=== PATIENT | female | born 1975 | race Caucasian/White ===

== ENCOUNTER 2017-09-25 03:10 | Emergency (ER) | payer MEDICARE, MEDICAID ==
[~2017-09-25] VITALS: Ht 162.6 cm; Wt 70.8 kg
[~2017-09-25 03:10] MED LIST: ALBUTEROL SULF8.5 GM INH; ALPRAZOLAM1 MG ORAL; BENADRYL25 M3 PO; IBUPROFEN600 MG PO; KLONOPIN1 MG ORAL; LEVOTHYROXINE88 MCG ORAL; PERMETHRIN60 GM TOPIC; PREDNISONE20 MG ORAL; SYNTHROID88 MCG ORAL; TRAZODONE HCL150 MG ORAL; WELLBUTRIN100 MG ORAL
[2017-09-25] MEDS ORDERED: KLONOPIN1 MG ORAL (03:42)
--- NOTE | 2017-09-25 03:50 | Emergency Room Report ---
History of Present Illness General Chief Complaint: General Complaint Source: Patient Present Illness HPI 42-year-old female, history of anxiety, presenting with anxiety. Patient states that she was living with her boyfriend, got "" kicked out of the house, and she states that she has not had access to her anxiety medication because it is at her boyfriend's house. No SI or HI. States that she has a doctor. Allergies: Coded Allergies: MORPHINE (Verified Allergy, Intermediate, 04/30/13) CHEST PAIN Patient History Past Medical History: see triage record Past Surgical History: none Pertinent Family History: none Last Menstrual Period: 2 weeks ago Now: No Reviewed Nursing Documentation: PMH: Agreed; PSxH: Agreed Nursing Documentation-PMH Hx COPD: Yes Review of Systems All Other Systems: negative except mentioned in HPI Physical Exam Vital Signs Date Time Temp Pulse Resp B/P (MAP) Pulse Ox O2 Delivery O2 Flow Rate FiO2 09/25/18 03:20 98.2 97 18 133/92 98 Room Air 98.2 Sp02 EP Interpretation: reviewed, normal General Appearance: alert, GCS 15, non-toxic, mild distress Head: normocephalic, atraumatic Eyes: bilateral eye normal inspection, bilateral eye PERRL, bilateral eye EOMI ENT: normal ENT inspection Neck: normal inspection Respiratory: normal inspection Cardiovascular #1: normal inspection, regular rate, rhythm Cardiovascular #2: 2+ radial (R), 2+ radial (L) Gastrointestinal: normal inspection Musculoskeletal: normal inspection, back normal, normal range of motion, non- tender Neurologic: normal inspection, alert, oriented x3, responsive, motor strength/ tone normal, sensory intact, normal gait, speech normal Psychiatric: no suicidal/homicidal ideation, anxious Skin: normal inspection, normal color, no rash, warm/dry, well hydrated, normal turgor Medical Decision Making Diagnostic Impression: Primary Impression: Encounter for medication refill Additional Impression: Anxiety disorder ER Course 42-year-old female with anxiety need medication refill for her Clonopin DDX: Medication refill Plan: None ER course: Patient has remained stable during ED stay. Disposition: Patient is to be discharged to home. Prescriptions given are Clonopin Patient is instructed to follow up with their primary care doctor for further refills Please note that this Emergency Department Report was dictated using [employer] technology software, occasionally this can lead to erroneous entry secondary to interpretation by the dictation equipment Last Vital Signs Date Time Temp Pulse Resp B/P (MAP) Pulse Ox O2 Delivery O2 Flow Rate FiO2 09/25/17 03:20 98.2 97 18 133/92 98 Room Air 98.2 Disposition: HOME, SELF-CARE Condition: Stable Scripts Clonazepam* (KLONOPIN*) 1 Mg Tablet 2 MG ORAL Q6H, #18 TAB 0 Refills Prov: Kristi Moralez M.D. 09/25/17 Referrals: NOT CHOSEN IPA/,REFERRING (PCP) Patient Instructions: Medicine Refill at the Emergency Department Kristi Moralez M.D. September 25, 2017 03:50
[2017-09-25 04:05] VITALS: BP_SYST 127; BP_SYST 133; BP_DIAS 87; BP_DIAS 92
== END 2017-09-25 04:10 | disposition home or self-care (01) ==
LOC: EMR 03:34
DX: F41.9 Anxiety disorder, unspecified (principal); Z88.6 Allergy status to analgesic agent; J44.9 Chronic obstructive pulmonary disease, unspecified
CPT/HCPCS: 99283

== ENCOUNTER 2017-12-25 03:33 | Emergency (ER) | payer MEDICARE, OTHER ==
[~2017-12-25] VITALS: Ht 162.6 cm; Wt 65.8 kg
[2017-12-25] MEDS ORDERED: Albuterol ud Inhalation HHN ONE (04:00)
[2017-12-25] MEDS ORDERED: Ipratropium 0.02% Inh Soln 2.5ml UD HHN ONE (04:00)
[2017-12-25] MEDS ORDERED: PROMETHAZINE-D118 ML ORAL (04:28)
[2017-12-25] MEDS ORDERED: ALBUTEROL SULF8.5 GM INH (04:28)
[2017-12-25] MEDS ORDERED: PREDNISONE20 MG ORAL (04:28)
[2017-12-25 04:41] VITALS: BP 108/72
[2017-12-25 04:43] VITALS: BP 108/72
--- NOTE | 2017-12-27 14:12 | Emergency Room Report ---
History of Present Illness General Chief Complaint: Asthma Source: Patient Present Illness HPI 42-year-old female presents ED for evaluation. Patient complaining of shortness of breath, sore throat, cough 1 week. Cough is nonproductive. Pain is dull, 7 out of 10, nonradiating. History of asthma. Denies fevers chills. Denies chest pain. Denies sick contacts or recent travel. No other aggravating relieving factors. Denies any other associated symptoms Allergies: Coded Allergies: MORPHINE (Verified Allergy, Intermediate, 04/30/13) CHEST PAIN Patient History Past Medical History: asthma, COPD, GERD Past Surgical History: none Pertinent Family History: none Social History: Denies: smoking, alcohol use, drug use Now: No Immunizations: UTD Reviewed Nursing Documentation: PMH: Agreed; PSxH: Agreed Nursing Documentation-PMH Past Medical History: No History, Except For Hx Asthma: Yes Hx COPD: Yes Hx Gastrointestinal Problems: Yes - GERD Review of Systems All Other Systems: negative except mentioned in HPI Physical Exam Vital Signs Date Time Temp Pulse Resp B/P (MAP) Pulse Ox O2 Delivery O2 Flow Rate FiO2 12/25/17 03:46 96 18 104/72 96 Room Air 12/25/17 04:03 21 12/25/17 04:41 98.0 98.0 Sp02 EP Interpretation: reviewed, normal General Appearance: no apparent distress, alert, GCS 15, non-toxic Head: normocephalic, atraumatic Eyes: bilateral eye normal inspection, bilateral eye PERRL ENT: hearing grossly normal, normal pharynx, no angioedema, normal voice Neck: full range of motion, supple/symm/no masses Respiratory: chest non-tender, normal breath sounds, speaking full sentences, wheezing Cardiovascular #1: regular rate, rhythm, no edema Cardiovascular #2: 2+ carotid (R), 2+ carotid (L), 2+ radial (R), 2+ radial (L) , 2+ dorsalis pedis (R), 2+ dorsalis pedis (L) Gastrointestinal: normal bowel sounds, non tender, soft, non-distended, no guarding, no rebound Rectal: deferred Genitourinary: normal inspection, no CVA tenderness Musculoskeletal: back normal, gait/station normal, normal range of motion, non- tender Neurologic: alert, oriented x3, responsive, motor strength/tone normal, sensory intact, speech normal Psychiatric: judgement/insight normal, memory normal, mood/affect normal, no suicidal/homicidal ideation Reflexes: 3+ bicep (R), 3+ bicep (L), 3+ tricep (R), 3+ tricep (L), 3+ knee (R) , 3+ knee (L) Skin: normal color, no rash, warm/dry, well hydrated Lymphatic: no adenopathy Medical Decision Making Diagnostic Impression: Primary Impression: Bronchitis ER Course Hospital Course 42-year-old female presents to ED complaining of cough, SOB Differential diagnoses include: URI, bronchitis, asthma/COPD, pneumonia Clinical course Patient placed on stretcher. After initial history and physical I ordered prednisone and nebulizer treatment. Upon reassessment patient states cough and symptoms have improved. Findings consistent with bronchitis. Diagnosis - bronchitis Stable and discharged home with prescriptions for Rx prednisone, albuterol, promethazine. Instructed to followup with PMD. Return to ED if symptoms recur or worsen Last Vital Signs Date Time Temp Pulse Resp B/P (MAP) Pulse Ox O2 Delivery O2 Flow Rate FiO2 12/25/17 04:43 98.0 84 20 108/72 98 Room Air 12/25/17 04:17 21 Status: improved Disposition: HOME, SELF-CARE Condition: Stable Scripts D-Methorphan Hb/Prometh Hcl* (PROMETHAZINE-DM SYRUP*) 118 Ml Syrup 5 ML ORAL Q6H PRN for For Cough, #118 ML 0 Refills Prov: Shawn Torres MD 12/25/17 Prednisone* (PREDNISONE*) 20 Mg Tablet 40 MG ORAL DAILY, #10 TAB Prov: Shawn Torres MD 12/25/17 Albuterol Sulfate* (ALBUTEROL SULFATE MDI*) 8.5 Gm Hfa.aer.ad 2 PUFF INH Q6H, #1 EA 0 Refills Prov: Shawn Torres MD 12/25/17 Patient Instructions: Acute Bronchitis, [id number] Shawn Torres MD Dec 27, 2017 14:12
== END 2017-12-25 04:45 | disposition home or self-care (01) ==
LOC: EMR 04:00
DX: J44.9 Chronic obstructive pulmonary disease, unspecified (principal); K21.9 Gastro-esophageal reflux disease without esophagitis; Z88.5 Allergy status to narcotic agent
CPT/HCPCS: 94640; 99284; J7512

== ENCOUNTER 2018-01-23 14:01 | Emergency (ER) | payer MEDICARE, MEDICAID ==
[~2018-01-23] VITALS: Ht 162.6 cm; Wt 63.5 kg
[~2018-01-23 14:01] MED LIST changes: +PROMETHAZINE-D118 ML ORAL
--- NOTE | 2018-01-23 14:27 | Emergency Room Report ---
History of Present Illness General Chief Complaint: Flu Like Symptoms Source: Patient, Medical Record Present Illness HPI 32-year-old female presents to the emergency department complaining of sore throat, rhinorrhea, cough, wheezing and subjective fevers 3 days. Patient reports history of bronchitis. Patient states that she took this morning for fever. Patient also reports generalized body aches. She denies photophobia, neck pain/stiffness or sudden onset headache. Allergies: Coded Allergies: MORPHINE (Verified Allergy, Intermediate, 04/30/13) CHEST PAIN Patient History Past Medical History: see triage record Past Surgical History: none Pertinent Family History: none Last Menstrual Period: depo shot Reviewed Nursing Documentation: PMH: Agreed; PSxH: Agreed Nursing Documentation-PMH Past Medical History: No History, Except For Hx Asthma: Yes Hx COPD: Yes Hx Gastrointestinal Problems: Yes - GERD Review of Systems All Other Systems: negative except mentioned in HPI Physical Exam Vital Signs Date Time Temp Pulse Resp B/P (MAP) Pulse Ox O2 Delivery O2 Flow Rate FiO2 01/23/18 14:18 98.7 82 18 110/70 97 Room Air 98.8 Sp02 EP Interpretation: reviewed, normal General Appearance: no apparent distress, alert, GCS 15, non-toxic Head: normocephalic, atraumatic Eyes: bilateral eye normal inspection, bilateral eye PERRL ENT: hearing grossly normal, normal pharynx, normal voice, TMs + canals normal , uvula midline, moist mucus membranes, nasal congestion Neck: full range of motion, no meningismus, no bony tend Respiratory: chest non-tender, normal breath sounds, speaking full sentences, wheezing - bilaterally Cardiovascular #1: regular rate, rhythm, no edema Musculoskeletal: back normal, gait/station normal, normal range of motion, non- tender Neurologic: alert, oriented x3, responsive, motor strength/tone normal, sensory intact, speech normal, grossly normal Psychiatric: judgement/insight normal Skin: normal color, no rash, warm/dry, well hydrated Lymphatic: no adenopathy Medical Decision Making PA Attestation Dr. Red is my supervising Physician whom patient management has been discussed with. Diagnostic Impression: Primary Impression: Bronchitis ER Course - Pt. specifically requesting Promethazine w. Codeine Ddx considered but are not limited to URI, pneumonia, PE, strep pharyngitis, meningitis. Vital signs: Pt.is afebrile VS are WNL H&PE are most consistent with bronchitis- mild acute exacerbation in the presence of moderate rhinorrhea and viral URI symptoms. ORDERS: none required at this time, the diagnosis is clinical ED INTERVENTIONS: -Albuterol HHN DISCHARGE: At this time pt. is stable for d/c to home. Will provide printed patient care instructions, and any necessary prescriptions. Care plan and follow up instructions have been discussed with the patient prior to discharge. Last Vital Signs Date Time Temp Pulse Resp B/P (MAP) Pulse Ox O2 Delivery O2 Flow Rate FiO2 01/23/18 14:25 82 18 Room Air 01/23/18 14:18 98.7 110/70 97 98.8 Disposition: HOME, SELF-CARE Condition: Stable Scripts Acetaminophen* (TYLENOL EXTRA STRENGTH*) 500 Mg Tablet 500 MG ORAL Q6H PRN for Mild Pain/Temp > 100.5, #20 TAB 0 Refills Prov: Patty Jimenez 01/23/18 Loratadine (CLARITIN) 10 Mg Capsule 10 MG ORAL DAILY, #15 CAP Prov: Patty Jimenez 01/23/18 D-Methorphan Hb/Prometh Hcl* (PROMETHAZINE-DM SYRUP*) 118 Ml Syrup 5 ML ORAL Q6H PRN for For Cough, #120 ML 0 Refills Prov: aPtty Jimenez 01/23/18 Albuterol Sulfate* (ALBUTEROL SULFATE MDI*) 8.5 Gm Hfa.aer.ad 2 PUFF INH Q3H, #1 INH 0 Refills Prov: Patty Jimenez 01/23/18 Patient Instructions: Acute Bronchitis, [id number] Additional Instructions: Take medications as directed. Follow up with a Primary Care Provider in 3-5 days, even if your symptoms have resolved. --Please review list of primary care clinics, if you do not already have a primary care provider Return sooner to ED if new symptoms occur, or current symptoms become worse. - Please note that this Emergency Department Report was dictated using [employer] technology software, occasionally this can lead to erroneous entry secondary to interpretation by the dictation equipment. Patty Jimenez Jan 23, 2018 14:27
[2018-01-23] MEDS ORDERED: Albuterol ud Inhalation HHN ONE (14:45)
[2018-01-23] MEDS ORDERED: TYLENOL EXTRA500 MG ORAL (15:01)
[2018-01-23] MEDS ORDERED: CLARITIN10 M2 ORAL (15:01)
[2018-01-23] MEDS ORDERED: PROMETHAZINE-D118 ML ORAL (15:01)
[2018-01-23] MEDS ORDERED: ALBUTEROL SULF8.5 GM INH (15:01)
[2018-01-23 15:21] VITALS: BP 112/72
== END 2018-01-23 15:21 | disposition home or self-care (01) ==
LOC: EMR 14:35
DX: J40 Bronchitis, not specified as acute or chronic (principal); J44.9 Chronic obstructive pulmonary disease, unspecified; K21.9 Gastro-esophageal reflux disease without esophagitis; Z88.5 Allergy status to narcotic agent
CPT/HCPCS: 94640; 99284

== ENCOUNTER 2018-12-13 21:41 | Emergency (ER) | payer MEDICARE, MEDICAID ==
[~2018-12-13] VITALS: Ht 162.6 cm; Wt 63.5 kg
[~2018-12-13 21:41] MED LIST changes: +CLARITIN10 M2 ORAL; +TYLENOL EXTRA500 MG ORAL
--- NOTE | 2018-12-13 21:50 | NUR ---
ED Nurse Note: pt walked in to ED C/O SOB for the last 2 days. Sp02 in RA is 96 % at this time with Hx of COPD. VSS. pt is alert x4.
[2018-12-13 21:52] VITALS: BP 120/80
--- NOTE | 2018-12-13 21:58 | Emergency Room Report ---
History of Present Illness General Chief Complaint: Upper Respiratory Illness Source: Patient Present Illness HPI Presents with 2 to 3 days of dyspnea with wheezing. She has a history of COPD and still smokes. She ran out of her inhaler recently. She denies any fevers or chills. She has not seen the color of her phlegm. She is been on prednisone in the past. She has slight left-sided lateral chest pain with coughing. However she denies pain to the triage nurse. Patient has frequency and dysuria. She is worried that she might have a UTI. No sore throat, palpitations, nausea, vomiting, diarrhea, abdominal pain, joint pain, rashes, depression, anxiety, visual changes, headache. Allergies: Coded Allergies: MORPHINE (Verified Allergy, Intermediate, 04/30/13) CHEST PAIN Patient History Past Medical History: see triage record Social History: Reports: smoking Social History Narrative at home -disabled Last Menstrual Period: 12/07/18 Now: No : 2 Para: 1 Reviewed Nursing Documentation: PMH: Agreed; PSxH: Agreed Nursing Documentation-PMH Hx Asthma: Yes Hx COPD: Yes Hx Gastrointestinal Problems: Yes - GERD Review of Systems All Other Systems: negative except mentioned in HPI Physical Exam Vital Signs Date Time Temp Pulse Resp B/P (MAP) Pulse Ox O2 Delivery O2 Flow Rate FiO2 12/13/18 21:46 98.1 91 17 117/77 (90) 95 Room Air Sp02 EP Interpretation: reviewed, normal General Appearance: well appearing, no apparent distress, GCS 15 Head: normocephalic Eyes: bilateral eye normal inspection, bilateral eye PERRL, bilateral eye EOMI ENT: moist mucus membranes Neck: full range of motion, supple Respiratory: chest non-tender - Minimal, wheezing, expiration Cardiovascular #1: regular rate, rhythm Cardiovascular #2: 2+ radial (R) Gastrointestinal: normal inspection, normal bowel sounds, non tender, no mass, non-distended Genitourinary: no CVA tenderness Musculoskeletal: back normal, gait/station normal, normal range of motion Neurologic: alert, oriented x3, grossly normal Psychiatric: mood/affect normal Skin: no rash Medical Decision Making Diagnostic Impression: Primary Impression: COPD exacerbation ER Course Patient presents with cough and wheezing with history of COPD and tobacco abuse. Differential includes exacerbation of COPD, pneumonia and asthma. Chest x-ray is ordered along with breathing treatments and prednisone. In addition because of the frequency and dysuria urinalysis will be checked. Urinalysis clear. Chest x-ray no infiltrates. Patient improved with treatment. Patient stable for outpatient observation and treatment. Laboratory Tests Test 12/13/18 22:38 Urine Color Pale yellow Urine Appearance Clear Urine pH 5 (4.5-8.0) Urine Specific [place] 1.010 (1.005-1.035) Urine Protein Negative (NEGATIVE) Urine Glucose (UA) Negative (NEGATIVE) Urine Ketones Negative (NEGATIVE) Urine Blood Negative (NEGATIVE) Urine Nitrite Negative (NEGATIVE) Urine Bilirubin Negative (NEGATIVE) Urine Urobilinogen Normal MG/DL (0.0-1.0) Urine Leukocyte Esterase Negative (NEGATIVE) Urine HCG, Qualitative Negative (NEGATIVE) Chest X-Ray Diagnostic Results Chest X-Ray Diagnostic Results : Chest X-Ray Ordered: Yes # of Views/Limited/Complete: 1 View Indication: Shortness of Breath EP Interpretation: Yes Interpretation: no consolidation, no effusion, no pneumothorax Impression: No acute disease Electronically Signed by: Electronically signed by Baron Rizvi MD Last Vital Signs Date Time Temp Pulse Resp B/P (MAP) Pulse Ox O2 Delivery O2 Flow Rate FiO2 12/13/18 23:05 98.0 79 17 132/79 97 Room Air 12/13/18 22:12 21 Status: improved Disposition: HOME, SELF-CARE Condition: Improved Scripts Prednisone* (PREDNISONE*) 20 Mg Tablet 40 MG ORAL DAILY, #10 TAB Prov: Baron Rizvi MD 12/13/18 Albuterol Sulfate* (ALBUTEROL SULFATE MDI*) 8.5 Gm Hfa.aer.ad 2 PUFF INH Q6H, #1 EA 2 Refills Prov: Baron Rizvi MD 12/13/18 Baron Rizvi MD Dec 13, 2018 21:58
[2018-12-13] MEDS ORDERED: Albuterol ud Inhalation HHN ONE (22:00)
[2018-12-13] MEDS ORDERED: Ipratropium 0.02% Inh Soln 2.5ml UD HHN ONE (22:00)
[2018-12-13 22:46] LABS: APPEARANCE,URINE CLEAR; BILIRUBIN, URINE NEGATIVE (NEGATIVE); COLOR,URINE PALE YELLOW; GLUCOSE, URINE (UA) NEGATIVE (NEGATIVE); KETONES,URINE NEGATIVE (NEGATIVE); LEUKOCYTE ESTERASE ,URINE NEGATIVE (NEGATIVE); NITRITE,URINE NEGATIVE (NEGATIVE); PH,URINE 5 (4.5-8.0); PROTEIN,URINE NEGATIVE (NEGATIVE); UROBILINOGEN,URINE NORMAL MG/DL (0.0-1.0)
[2018-12-13] MEDS ORDERED: PREDNISONE20 MG ORAL (23:01)
[2018-12-13] MEDS ORDERED: ALBUTEROL SULF8.5 GM INH (23:01)
--- NOTE | 2018-12-13 23:02 | Diagnostic Imaging Report ---
EXAM: XR Chest, 1 View CLINICAL HISTORY: DYSPNEA TECHNIQUE: Frontal view of the chest. COMPARISON: 04/30/13 cxr FINDINGS: Lungs: Unremarkable. No consolidation. Pleural space: Unremarkable. No pneumothorax. Heart: Unremarkable. No cardiomegaly. Mediastinum: Unremarkable. Bones/joints: Unremarkable. IMPRESSION: Normal chest x-ray.
[2018-12-13 23:05] VITALS: BP 132/79
--- NOTE | 2018-12-13 23:05 | NUR ---
ER DISCHARGE NOTE: Patient is cleared to be discharged per ERMD, pt is aox4, on room air, with stable vital signs. pt was given dc and prescription instructions, pt was able to verbalize understanding, pt id band removed without complications. pt is able to ambulate with steady gait. pt took all belongings.ED Nurse Note:
== END 2018-12-13 23:10 | disposition home or self-care (01) ==
LOC: EMR 22:35
DX: J44.1 Chronic obstructive pulmonary disease with (acute) exacerbation (principal); J45.909 Unspecified asthma, uncomplicated; K21.9 Gastro-esophageal reflux disease without esophagitis; F17.200 Nicotine dependence, unspecified, uncomplicated; Z88.6 Allergy status to analgesic agent
CPT/HCPCS: 71045; 81003; 81025; 94640; 99283; J7512

== ENCOUNTER 2019-01-16 21:36 | Emergency (ER) | payer MEDICARE, MEDICAID ==
[~2019-01-16] VITALS: Ht 162.6 cm; Wt 65.8 kg
[2019-01-16 21:41] VITALS: BP 118/77
--- NOTE | 2019-01-16 21:47 | NUR ---
ED Nurse Note: Pt came in due to nausea for the past week and feeling anxious. No active vomiting or pain. AAO x4 and ambulatory.
--- NOTE | 2019-01-16 22:30 | NUR ---
ED Nurse Note: Urine specimen sent.
[2019-01-16 22:35] LABS: APPEARANCE,URINE CLEAR; BILIRUBIN, URINE NEGATIVE (NEGATIVE); COLOR,URINE PALE YELLOW; GLUCOSE, URINE (UA) NEGATIVE (NEGATIVE); KETONES,URINE NEGATIVE (NEGATIVE); LEUKOCYTE ESTERASE ,URINE 3+ (NEGATIVE); NITRITE,URINE NEGATIVE (NEGATIVE); PH,URINE 5 (4.5-8.0); PROTEIN,URINE NEGATIVE (NEGATIVE); UROBILINOGEN,URINE NORMAL MG/DL (0.0-1.0)
--- NOTE | 2019-01-16 22:38 | Emergency Room Report ---
History of Present Illness General Chief Complaint: Nausea Source: Patient Present Illness HPI 43-year-old female with history of anxiety. She presents with chief complaint of feeling overwhelmed feeling nauseous. Onset for about a week now. No suicidal thoughts homicidal thought. She felt nauseous occasionally. 3 times in this last week. No vomiting. Does not think that she is . She has a lot of stress from school and relationship problem. She said that takes her 2 -[address] to go to school. She felt overwhelmed. She also said that she lives with a cecilia who is "a sociopath." With him because she has no other place to go. Not suicidal or homicidal. No psychosis. Once off of school for a few days. Said that she cannot see her counselor to get a longer break from school. Allergies: Coded Allergies: MORPHINE (Verified Allergy, Intermediate, 04/30/13) CHEST PAIN Patient History Past Medical History: see triage record, old chart reviewed, psych hx Past Surgical History: none Pertinent Family History: none Social History: Denies: smoking Last Menstrual Period: 12/28/18 Now: No : 2 Para: 1 Immunizations: other Reviewed Nursing Documentation: PMH: Agreed; PSxH: Agreed Nursing Documentation-PMH Past Medical History: No History, Except For Hx Asthma: Yes Hx COPD: Yes Hx Gastrointestinal Problems: Yes - GERD Review of Systems Eye: Denies: eye pain, blurred vision ENT: Denies: ear pain, nose congestion, throat swelling Respiratory: Denies: cough, shortness of breath Cardiovascular: Denies: chest pain, palpitations Gastrointestinal: Denies: abdominal pain, diarrhea, nausea, vomiting Musculoskeletal: Denies: back pain, joint pain Skin: Denies: rash Psychiatric: Reports: depressed feelings, emotional problems Neurological: Denies: headache, numbness Endocrine: Denies: increased thirst, increased urine Hematologic/Lymphatic: Denies: easy bruising All Other Systems: negative except mentioned in HPI Physical Exam Vital Signs Date Time Temp Pulse Resp B/P (MAP) Pulse Ox O2 Delivery O2 Flow Rate FiO2 01/16/19 21:41 98.8 96 18 118/77 96 Room Air Vitals normal Sp02 EP Interpretation: reviewed, normal General Appearance: well appearing, no apparent distress, alert Head: normocephalic, atraumatic Eyes: bilateral eye PERRL, bilateral eye EOMI ENT: hearing grossly normal, normal pharynx Neck: full range of motion, supple, no meningismus Respiratory: chest non-tender, lungs clear, normal breath sounds Cardiovascular #1: regular rate, rhythm, no murmur Gastrointestinal: normal bowel sounds, non tender, no mass, no organomegaly, no bruit, non-distended Musculoskeletal: back normal, gait/station normal, normal range of motion Neurologic: alert, oriented x3 Psychiatric: depressed affect, anxious Medical Decision Making Diagnostic Impression: Primary Impression: Anxiety disorder Qualified Codes: F41.1 - Generalized anxiety disorder ER Course Pt presents with anxiety. No suicidal thoughts or homicidal thought. No criteria for 5150. Will have patient follow-up with her counselor/psychiatrist for longer school break as needed. Will discharge home. Last Vital Signs Date Time Temp Pulse Resp B/P (MAP) Pulse Ox O2 Delivery O2 Flow Rate FiO2 01/16/19 21:41 98.8 96 18 118/77 (91) 96 Room Air Status: improved Disposition: HOME, SELF-CARE Condition: Stable Additional Instructions: Follow-up with your doctor/counselor within a week. Return if symptoms worsen. Buster Doyle MD Jan 16, 2019 22:38
[2019-01-16 22:57] VITALS: BP 125/70
--- NOTE | 2019-01-16 22:57 | NUR ---
ER DISCHARGE NOTE: Patient is cleared to be discharged per ERMD, pt is aox4, on room air, with stable vital signs. pt was given dc instructions, pt was able to verbalize understanding, pt id band removed. pt is able to ambulate with steady gait. pt took all belongings.
== END 2019-01-16 22:57 | disposition home or self-care (01) ==
LOC: EMR 22:02
DX: F41.1 Generalized anxiety disorder (principal); J44.9 Chronic obstructive pulmonary disease, unspecified; K21.9 Gastro-esophageal reflux disease without esophagitis; Z88.6 Allergy status to analgesic agent
CPT/HCPCS: 81003; 81025; 99283

== ENCOUNTER 2019-01-26 12:59 | Emergency (ER) | payer MEDICARE, MEDICAID ==
[~2019-01-26] VITALS: Ht 162.6 cm; Wt 68.0 kg
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
[2019-01-26 13:26] VITALS: BP 126/74
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
[2019-01-26 13:32] VITALS: BP 122/72
--- NOTE | 2019-01-26 13:32 | NUR ---
ED Nurse Note: PT SITTING PEACEFULLY IN BED IN NAD. AOX4. DISCHARGE PAPERWORK EXPLAINED TO PT. PT VERBALIZES UNDERSTANDING AND ALL QUESTIONS ANSWERED. DISCHARGE PAPERWORK GIVEN TO PT AND ID WRISTBAND REMOVED. REFERRALS FOR MENTAL HEALTH FACILITIES REVIEWED WITH PT. PT VERBALIZES THAT SHE WILL MAKE AN APPOINTMENT WITH ONE OF THE FACILITIES TODAY. PT WALKED OUT OF ER WITH STEADY GAIT AND ALL BELONGINGS.
== END 2019-01-26 13:34 | disposition home or self-care (01) ==
LOC: EMR 13:28
DX: F41.9 Anxiety disorder, unspecified (principal); J44.9 Chronic obstructive pulmonary disease, unspecified; K21.9 Gastro-esophageal reflux disease without esophagitis; Z88.6 Allergy status to analgesic agent; F90.9 Attention-deficit hyperactivity disorder, unspecified type
CPT/HCPCS: 99282

== ENCOUNTER 2019-02-23 13:51 | Emergency (ER) | payer MEDICARE, MEDICAID ==
[~2019-02-23] VITALS: Ht 162.6 cm; Wt 65.8 kg
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
--- NOTE | 2019-02-23 15:45 | NUR ---
ER DISCHARGE NOTE: Patient is cleared to be discharged per ERMD, pt is aox4, on room air, with stable vital signs. pt was given dc and psychiatric refferals instructions, pt was able to verbalize understanding, pt is able to ambulate with steady gait. pt took all belongings.
[2019-02-23 17:28] VITALS: BP 129/90
[2019-02-23 17:31] VITALS: BP 129/90
== END 2019-02-23 16:00 | disposition home or self-care (01) ==
LOC: EMR 15:03
DX: F41.9 Anxiety disorder, unspecified (principal); Z88.6 Allergy status to analgesic agent; J44.9 Chronic obstructive pulmonary disease, unspecified; K21.9 Gastro-esophageal reflux disease without esophagitis
CPT/HCPCS: 99282

== ENCOUNTER 2019-11-09 04:18 | Emergency (ER) | payer MEDICARE, MEDICAID ==
[~2019-11-09] VITALS: Ht 162.6 cm; Wt 66.7 kg
[2019-11-09 04:48] VITALS: BP 125/80
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
[2019-11-09] MEDS ORDERED: IBUPROFEN600 M1 ORAL (05:20)
[2019-11-09] MEDS ORDERED: LIDODERM700 M1 TOPIC (05:52)
[2019-11-09 06:17] VITALS: BP 123/78
== END 2019-11-09 06:19 | disposition home or self-care (01) ==
LOC: EMR 04:46
DX: S39.012A Strain of muscle, fascia and tendon of lower back, initial encounter (principal); S40.021A Contusion of right upper arm, initial encounter; Y04.8XXA Assault by other bodily force, initial encounter; Y92.9 Unspecified place or not applicable; F41.9 Anxiety disorder, unspecified; Z88.6 Allergy status to analgesic agent; J44.9 Chronic obstructive pulmonary disease, unspecified; K21.9 Gastro-esophageal reflux disease without esophagitis
CPT/HCPCS: 99283